=== PATIENT | male | born 1995 | race Caucasian/White ===

== ENCOUNTER 2017-08-31 08:48 | Emergency (ER) | payer SELFPAY ==
[2017-08-31 09:01] VITALS: BP 134/60; PULSE 103; O2SAT 98
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
[2017-08-31 09:41] LABS: Granulocyte Absolute (ANC) 7.11 (1.4-6.9); Hematocrit 47.9 % (42-50); Hemoglobin 16.1 gm/dl (12.5-18.0); Mean Cell Volume 94.5 fl (78-100); Mean Corpuscular Hemoglobin 31.8 pg (26-32); Mean Corpuscular Hgb Concent. 33.6 g/dl (32-36); Platelet Count 229 K/mm3 (150-450); Red Blood Count 5.07 M/mm3 (4.1-5.6); Red Cell Distribution Width 13.5 % (11.5-14.0); White Blood Count 9.5 K/mm3 (4.0-10.5)
[2017-08-31 09:47] LABS: ACETAMINOPHEN < 10 ug/ml (10-30); ALBUMIN 4.7 g/dL (3.5-5.0); ALKALINE PHOSPHATASE 44 U/L (38-126); ANION GAP 17.7 MEQ/L (5-15); BLOOD UREA NITROGEN 9 mg/dL (9-20); CHLORIDE 108 mmol/L (98-107); Calcium 9.3 mg/dL (8.4-10.2); Carbon Dioxide 26 mmol/L (22-30); Creatinine 1 0.76 mg/dL (0.66-1.25); ETHYL ALCOHOL 187 mg/dL (0-10); Glucose 96 mg/dL (74-106); Potassium 4.2 mmol/L (3.5-5.1); SALICYLATE < 1.0 mg/dL (2-20); SGOT/AST 39 U/L (17-59); SGPT/ALT 18 U/L (0-50); SODIUM 147 mmol/L (137-145); Total Protein 7.8 g/dL (6.3-8.2)
[2017-08-31 09:56] LABS: Amphetamine,Urine POSITIVE (NEGATIVE); Barbiturate,Urine NEGATIVE (NEGATIVE); Benzodiazepine,Urine NEGATIVE (NEGATIVE); Cocaine,Urine NEGATIVE (NEGATIVE); Methadone,Urine NEGATIVE (NEGATIVE); Opiate,Urine NEGATIVE (NEGATIVE); PCP,Urine NEGATIVE (NEGATIVE); THC,Urine POSITIVE (NEGATIVE)
[2017-08-31 13:53] LABS: BAND 1 % (0.0-2.0); Lymphocytes 15 % (24-44); Monocyte 2 % (0.0-12.0); Neutrophils 82 % (36.-66.); Total Cells Counted 100
[2017-08-31 13:54] LABS: Platelet Estimate NORMAL (NORMAL)
== END 2017-08-31 10:26 | disposition home or self-care (01) ==
LOC: ED 08:48
DX: F10.920 Alcohol use, unspecified with intoxication, uncomplicated (principal)
CPT/HCPCS: 36415; 80053; 80307; 85025; 99282; 99283; G0481; G0480

== ENCOUNTER 2019-12-06 23:44 | Emergency (ER) | payer MEDICAID, OTHER ==
--- NOTE | 2019-12-06 23:47 | ERPHSYRPT ---
- History of Present Illness Time Seen by Provider: 12/06/19 23:47 Source: patient Exam Limitations: no limitations Physician History: This is a 23-year-old male who presents with shortness of breath and some non- radiating substernal central chest pain and pressure. Occurred during sexual intercourse. Patient denies any heart history. He is not on any medications. Patient denies illicit drug use. Patient has not had a fever he is not coughing. He has no abdominal pain and no nausea vomiting or diarrhea. Onset of his symptoms was earlier today. They have just not resolved. They are not worse but not gone. Patient is not under any new stressors. Timing/Duration: today Activities at Onset: activity (Sexual intercourse) Severity of Dyspnea-Max: moderate Severity of Dyspnea-Current: moderate Possible Cause: no prior episodes Modifying Factors: Improves With: nothing Associated Symptoms: No anxiety, No cough, No lightheadedness, No painful breathing, No tightness, No tingling face, No tingling hands Allergies/Adverse Reactions: No Known Drug Allergies Allergy (Verified 12/06/19 23:50) Home Medications: No Reportable Medications [No Reported Medications] 11/06/12 [History] Hx Tetanus, Diphtheria Vaccination/Date Given: Yes Hx Influenza Vaccination/Date Given: No Hx Pneumococcal Vaccination/Date Given: No Travel Risk - International Travel Have you traveled outside of the country in past 3 weeks: No - Coronavirus Screening Are you exhibiting any of the following symptoms?: No Close contact with a COVID-19 positive Pt in past 14-21 Days: No - Review of Systems Constitutional: No Symptoms Eyes: No Symptoms Ears, Nose, & Throat: No Symptoms Respiratory: No Symptoms, Dyspnea (Mild) Cardiac: Chest Pain (Mild tightness) Abdominal/Gastrointestinal: No Symptoms Genitourinary Symptoms: No Symptoms Musculoskeletal: No Symptoms Skin: No Symptoms Neurological: No Symptoms Psychological: No Symptoms Endocrine: No Symptoms Hematologic/Lymphatic: No Symptoms Immunological/Allergic: No Symptoms All Other Systems: Reviewed and Negative - Past Medical History Pertinent Past Medical History: Yes Neurological History: No Pertinent History ENT History: No Pertinent History Cardiac History: Other Respiratory History: No Pertinent History Endocrine Medical History: No Pertinent History Musculoskeletal History: No Pertinent History GI Medical History: No Pertinent History History: No Pertinent History Psycho-Social History: Anxiety Male Reproductive Disorders: No Pertinent History Other Medical History: worked up for chest pain at [facility] was told it was muscoluskeletal. - Past Surgical History Past Surgical History: No Other Surgical History: denies - Social History Smoking Status: Current every day smoker Exposure to second hand smoke: Yes Drug Use: marijuana Patient Lives Alone: Yes - Nursing Vital Signs Nursing Vital Signs: Initial Vital Signs Temperature 98.1 F 12/06/19 23:50 Pulse Rate 86 12/06/19 23:50 Respiratory Rate 16 12/06/19 23:50 Blood Pressure 141/88 12/06/19 23:50 O2 Sat by Pulse Oximetry 99 12/06/19 23:50 Pain Scale Pain Intensity 2 - Physical Exam General Appearance: no apparent distress, alert, anxiety Eye Exam: PERRL/EOMI, eyes nml inspection Ears, Nose, Throat Exam: hearing grossly normal, normal pharynx Neck Exam: normal inspection, non-tender, supple, full range of motion Respiratory Exam: normal breath sounds, chest tenderness, lungs clear, No respiratory distress, No airway intact Cardiovascular/Chest Exam: normal heart sounds, regular rate/rhythm, normal peripheral pulses Abdominal/Gastrointestinal Exam: soft, normal bowel sounds, No tenderness Rectal Exam: not done Extremity Exam: non-tender, normal range of motion, normal inspection Neurologic Exam: alert, oriented x 3, cooperative, counsel II-XII nml as tested, nml cerebellar function, nml station & gait, sensation nml Skin Exam: normal color, warm, dry Lymphatic Exam: No adenopathy SpO2 Interpretation: normal O2 Delivery: Room Air - Course Nursing assessment & vital signs reviewed: Yes EKG Interpreted by Me: RATE (90), Sinus Rhythm, NORMAL AXIS, NORMAL INTERVALS, NORMAL QRS, Other (No acute ischemic changes.) Ordered Tests: Active Orders 24 hr Category Date Time Status Teacher Citizenship STAT Care 12/06/19 23:58 Active Clean Catch Urine Specimen STAT Care 12/07/19 00:45 Active EKG-ER Only STAT Care 12/06/19 23:57 Active IV Insertion STAT Care 12/06/19 23:57 Active Pulse Oximetry (ED) STAT Care 12/06/19 23:57 Active CHEST 1 VIEW (PORTABLE) Stat Exams 12/07/19 00:15 Taken TROPONIN Q3H Lab 12/07/19 02:50 Completed TROPONIN Q3H Lab 12/07/19 05:57 Ordered TROPONIN Q3H Lab 12/07/19 08:57 Ordered TROPONIN Q3H Lab 12/07/19 11:57 Ordered UA W/RFX UR CULTURE Stat Lab 12/07/19 00:45 Completed Urine Triage Profile Stat Lab 12/07/19 00:46 Completed Medication Summary Discontinued Medications Generic Name Dose Route Start Last Admin Trade Name Justine PRN Reason Stop Dose Admin Aspirin 324 mg 12/06/19 23:57 12/07/19 00:30 Baby Aspirin 81 Mg Chew PO 12/06/19 23:58 324 mg STAT ONE Administration Lab/Rad Data: Laboratory Result Diagrams 12/06/19 00:15 12/06/19 00:15 Laboratory Results 12/07/19 12/07/19 12/07/19 Range/Units 02:50 00:46 00:45 WBC (4.0-10.5) K/mm3 RBC (4.1-5.6) M/mm3 Hgb (12.5-18.0) gm/dl Hct (42-50) % MCV (78-100) fl MCH (26-32) pg MCHC (32-36) g/dl RDW (11.5-14.0) % Plt Count (150-450) K/mm3 MPV (7.5-11.0) fl Segmented Neutrophils (36.-66.) % Lymphocytes (Manual) (24-44) % Monocytes (Manual) (0.0-12.0) % Platelet Estimate (NORMAL) RBC Morphology D-Dimer (215-500) ng/mL Sodium (137-145) mmol/L Potassium (3.5-5.1) mmol/L Chloride (98-107) mmol/L Carbon Dioxide (22-30) mmol/L Anion Gap (5-15) MEQ/L BUN (9-20) mg/dL Creatinine (0.66-1.25) mg/dL Estimated GFR ML/MIN Glucose (74-106) mg/dL Calcium (8.4-10.2) mg/dL Total Bilirubin (0.2-1.3) mg/dL AST (17-59) U/L ALT (0-50) U/L Alkaline Phosphatase (38-126) U/L Troponin I 0.041 H* (0.000-0.034) ng/mL Serum Total Protein (6.3-8.2) g/dL Albumin (3.5-5.0) g/dL Urine Color YELLOW (YELLOW) Urine Appearance CLEAR (CLEAR) Urine pH 7.0 (5-6) Ur Specific [place] 1.008 (1.005-1.025) Urine Protein 30 (Negative) Urine Ketones TRACE (NEGATIVE) Urine Blood NEGATIVE (0-5) Alex/ul Urine Nitrite NEGATIVE (NEGATIVE) Urine Bilirubin NEGATIVE (NEGATIVE) Urine Urobilinogen NEGATIVE (0-1) mg/dL Ur Leukocyte Esterase NEGATIVE (NEGATIVE) Urine WBC (Auto) 6-10 (0-5) /HPF Urine RBC (Auto) 0-2 (0-2) /HPF U Hyaline Cast (Auto) 3-5 (0-2) /LPF U Epithel Cells (Auto) RARE (FEW) /HPF Urine Bacteria (Auto) NONE (NEGATIVE) /HPF Urine Mucus (Auto) SLIGHT (NEGATIVE) /HPF Urine Culture Reflexed NO (NO) Urine Glucose NEGATIVE (NEGATIVE) mg/dL Urine Opiates Level NEGATIVE (NEGATIVE) Ur Methadone NEGATIVE (NEGATIVE) Urine Barbiturates NEGATIVE (NEGATIVE) Ur Phencyclidine (PCP) NEGATIVE (NEGATIVE) Urine Amphetamine NEGATIVE (NEGATIVE) U Benzodiazepine Level NEGATIVE (NEGATIVE) Urine Cocaine NEGATIVE (NEGATIVE) Urine Marijuana (THC) POSITIVE (NEGATIVE) 12/06/19 12/06/19 12/06/19 Range/Units 00:15 00:15 00:15 WBC 15.2 H (4.0-10.5) K/mm3 RBC 5.06 (4.1-5.6) M/mm3 Hgb 15.8 (12.5-18.0) gm/dl Hct 48.5 (42-50) % MCV 95.8 (78-100) fl MCH 31.2 (26-32) pg MCHC 32.6 (32-36) g/dl RDW 14.1 H (11.5-14.0) % Plt Count 268 (150-450) K/mm3 MPV 10.7 (7.5-11.0) fl Segmented Neutrophils 84 H (36.-66.) % Lymphocytes (Manual) 14 L (24-44) % Monocytes (Manual) 2 (0.0-12.0) % Platelet Estimate NORMAL (NORMAL) RBC Morphology NORMAL D-Dimer 539 H* (215-500) ng/mL Sodium 137 (137-145) mmol/L Potassium 3.9 (3.5-5.1) mmol/L Chloride 104 (98-107) mmol/L Carbon Dioxide 25 (22-30) mmol/L Anion Gap 11.8 (5-15) MEQ/L BUN 9 (9-20) mg/dL Creatinine 1.04 (0.66-1.25) mg/dL Estimated GFR > 60.0 ML/MIN Glucose 88 (74-106) mg/dL Calcium 9.7 (8.4-10.2) mg/dL Total Bilirubin 0.40 (0.2-1.3) mg/dL AST 27 (17-59) U/L ALT 25 (0-50) U/L Alkaline Phosphatase 60 (38-126) U/L Troponin I (0.000-0.034) ng/mL Serum Total Protein 7.5 (6.3-8.2) g/dL Albumin 4.4 (3.5-5.0) g/dL Urine Color (YELLOW) Urine Appearance (CLEAR) Urine pH (5-6) Ur Specific [place] (1.005-1.025) Urine Protein (Negative) Urine Ketones (NEGATIVE) Urine Blood (0-5) Alex/ul Urine Nitrite (NEGATIVE) Urine Bilirubin (NEGATIVE) Urine Urobilinogen (0-1) mg/dL Ur Leukocyte Esterase (NEGATIVE) Urine WBC (Auto) (0-5) /HPF Urine RBC (Auto) (0-2) /HPF U Hyaline Cast (Auto) (0-2) /LPF U Epithel Cells (Auto) (FEW) /HPF Urine Bacteria (Auto) (NEGATIVE) /HPF Urine Mucus (Auto) (NEGATIVE) /HPF Urine Culture Reflexed (NO) Urine Glucose (NEGATIVE) mg/dL Urine Opiates Level (NEGATIVE) Ur Methadone (NEGATIVE) Urine Barbiturates (NEGATIVE) Ur Phencyclidine (PCP) (NEGATIVE) Urine Amphetamine (NEGATIVE) U Benzodiazepine Level (NEGATIVE) Urine Cocaine (NEGATIVE) Urine Marijuana (THC) (NEGATIVE) 12/06/19 Range/Units 00:15 WBC (4.0-10.5) K/mm3 RBC (4.1-5.6) M/mm3 Hgb (12.5-18.0) gm/dl Hct (42-50) % MCV (78-100) fl MCH (26-32) pg MCHC (32-36) g/dl RDW (11.5-14.0) % Plt Count (150-450) K/mm3 MPV (7.5-11.0) fl Segmented Neutrophils (36.-66.) % Lymphocytes (Manual) (24-44) % Monocytes (Manual) (0.0-12.0) % Platelet Estimate (NORMAL) RBC Morphology D-Dimer (215-500) ng/mL Sodium (137-145) mmol/L Potassium (3.5-5.1) mmol/L Chloride (98-107) mmol/L Carbon Dioxide (22-30) mmol/L Anion Gap (5-15) MEQ/L BUN (9-20) mg/dL Creatinine (0.66-1.25) mg/dL Estimated GFR ML/MIN Glucose (74-106) mg/dL Calcium (8.4-10.2) mg/dL Total Bilirubin (0.2-1.3) mg/dL AST (17-59) U/L ALT (0-50) U/L Alkaline Phosphatase (38-126) U/L Troponin I 0.031 (0.000-0.034) ng/mL Serum Total Protein (6.3-8.2) g/dL Albumin (3.5-5.0) g/dL Urine Color (YELLOW) Urine Appearance (CLEAR) Urine pH (5-6) Ur Specific [place] (1.005-1.025) Urine Protein (Negative) Urine Ketones (NEGATIVE) Urine Blood (0-5) Alex/ul Urine Nitrite (NEGATIVE) Urine Bilirubin (NEGATIVE) Urine Urobilinogen (0-1) mg/dL Ur Leukocyte Esterase (NEGATIVE) Urine WBC (Auto) (0-5) /HPF Urine RBC (Auto) (0-2) /HPF U Hyaline Cast (Auto) (0-2) /LPF U Epithel Cells (Auto) (FEW) /HPF Urine Bacteria (Auto) (NEGATIVE) /HPF Urine Mucus (Auto) (NEGATIVE) /HPF Urine Culture Reflexed (NO) Urine Glucose (NEGATIVE) mg/dL Urine Opiates Level (NEGATIVE) Ur Methadone (NEGATIVE) Urine Barbiturates (NEGATIVE) Ur Phencyclidine (PCP) (NEGATIVE) Urine Amphetamine (NEGATIVE) U Benzodiazepine Level (NEGATIVE) Urine Cocaine (NEGATIVE) Urine Marijuana (THC) (NEGATIVE) - Progress Progress: improved (Patient now states he has no more chest pain.) Air Movement: good Progress Note: 12/07/19 03:24 Chest x-ray reveals no acute pulmonary process. Medical decision making: This patient, who has no bleeding or clotting disorders, no personal history of any cardiac issues and no family history of cardiac issues that he is aware of presents with chest pain during sexual intercourse. The initial EKG read out borderline ST changes on the computer readout. However, on my reading of it did not show acute ST changes. His troponin level was near the high borderline level so we observed him for another 3 hours. We then repeated his troponin level which tripp to above the normal level to 0.041. This was up from 0.031. The patient's chest pain has now resolved. The repeat EKG at 3:27 AM on 12/07/2019 shows resolution of both atrial premature complex and borderline ST elevation in the anterior leads but persistent borderline T abnormalities in the inferior leads. I reviewed the troponin levels and EKG results with the patient. Patient has stated that he does not want to be admitted or transferred to a facility and would go home and go to a nearby hospital if his symptoms worsened. I explained to him the benefits of and need of transferring to a facility that has an taker away/histology manager and an intensive care unit. I explained to him the risk of going home including worsening pain, worsening condition and . Patient then briefly agreed to be transferred. However, he has changed his mind again and the nurses are talking to him at this time. He is now wanting to be transferred via private vehicle. I went to speak with him again. Patient is aware that he will need to sign an AMA form if he chooses to leave or be transferred via private vehicle. 12/07/19 03:29 12/07/19 03:43 The patient now opts for going home. He does not want to be transferred to any facility via private vehicle or be transferred or admitted to this facility. Patient wants to go home. I spoke with him as well as the nurse spoke with him. Patient is aware of the above risks including symptoms worsening and . one of the patient's concerns was the lack of health insurance. A medical screening for medicaid was done and pt is eleigible for health insurance. We addressed this with him as well but this did not sway his decision. Patient will sign an AMA form. Patient is alert and oriented x4. Patient was encouraged again to be transferred to a facility where there is a histology manager in the ability to perform interventional cardiology. Patient was also encouraged to return to emergency department or to any emergency department if he changes his mind or symptoms worsen. 12/07/19 03:49 12/07/19 03:52 12/07/19 03:54 12/07/19 03:56 Blood Culture(s) Obtained: No Antibiotics given: No Counseled pt/family regarding: lab results, diagnosis, need for follow-up, rad results - Departure Departure Disposition: AMA Clinical Impression: Chest pain, Elevated troponin Condition: Stable Critical Care Time: Yes Critical Care Time(excluding separately billable procedures): Critical 30-74 mins Referrals: STEPHANI HORTON [Primary Care Provider] - Additional Instructions: Get to an emergency department immediately for further management.
[2019-12-07 00:15] LABS: Hematocrit 48.5 % (42-50); Hemoglobin 15.8 gm/dl (12.5-18.0); Mean Cell Volume 95.8 fl (78-100); Mean Corpuscular Hemoglobin 31.2 pg (26-32); Mean Corpuscular Hgb Concent. 32.6 g/dl (32-36); Mean Platelet Volume 10.7 fl (7.5-11.0); Platelet Count 268 K/mm3 (150-450); Red Blood Count 5.06 M/mm3 (4.1-5.6); Red Cell Distribution Width 14.1 % (11.5-14.0); White Blood Count 15.2 K/mm3 (4.0-10.5)
[2019-12-07 00:30] LABS: ALBUMIN 4.4 g/dL (3.5-5.0); ALKALINE PHOSPHATASE 60 U/L (38-126); ANION GAP 11.8 MEQ/L (5-15); BLOOD UREA NITROGEN 9 mg/dL (9-20); CHLORIDE 104 mmol/L (98-107); Calcium 9.7 mg/dL (8.4-10.2); Carbon Dioxide 25 mmol/L (22-30); Creatinine 1 1.04 mg/dL (0.66-1.25); Glucose 88 mg/dL (74-106); Potassium 3.9 mmol/L (3.5-5.1); SGOT/AST 27 U/L (17-59); SGPT/ALT 25 U/L (0-50); SODIUM 137 mmol/L (137-145); Total Protein 7.5 g/dL (6.3-8.2)
[2019-12-07] MEDS: BABY ASPIRIN 81 MG CHEW PO ONE (00:30)
[2019-12-07 00:55] LABS: Appearance CLEAR (CLEAR); Bilirubin NEGATIVE (NEGATIVE); Blood NEGATIVE Ery/ul (0-5); Epithelial Cells RARE /HPF (FEW); Glucose NEGATIVE (NEGATIVE); Ketones TRACE (NEGATIVE); Leukocyte Esterase NEGATIVE (NEGATIVE); Mucus SLIGHT /HPF (NEGATIVE); Nitrite NEGATIVE (NEGATIVE); Protein,Urine Dip 30 (Negative); RBC 0-2 /HPF (0-2); Specific Gravity 1.008 (1.005-1.025); Urobilinogen NEGATIVE mg/dL (0-1)
[2019-12-07 00:58] LABS: Lymphocytes 14 % (24-44); Monocyte 2 % (0.0-12.0); Neutrophils 84 % (36.-66.); Total Cells Counted 100
[2019-12-07 00:59] LABS: Platelet Estimate NORMAL (NORMAL)
[2019-12-07 01:06] LABS: Amphetamine,Urine NEGATIVE (NEGATIVE); Barbiturate,Urine NEGATIVE (NEGATIVE); Benzodiazepine,Urine NEGATIVE (NEGATIVE); Cocaine,Urine NEGATIVE (NEGATIVE); Methadone,Urine NEGATIVE (NEGATIVE); Opiate,Urine NEGATIVE (NEGATIVE); PCP,Urine NEGATIVE (NEGATIVE); THC,Urine POSITIVE (NEGATIVE)
[2019-12-07 03:58] VITALS: BP 149/90; PULSE 97; O2SAT 99
--- NOTE | 2019-12-07 09:10 | XRAY ---
Indication: Chest pain and short of breath. Comparison: November 06, 2012. Portable chest again demonstrates normal heart, lungs, and bony thorax.
== END 2019-12-07 04:04 | disposition left against medical advice (07) ==
LOC: ED 23:44
DX: R07.9 Chest pain, unspecified (principal); R74.8 Abnormal levels of other serum enzymes
CPT/HCPCS: 36000; 36415; 71045; 80053; 80307; 81001; 84484; 85025; 85379; 93005; 93041; 94760; 99284; 99291; A9270-GY

== ENCOUNTER 2020-01-30 02:44 | Emergency (ER) | payer OTHER ==
[2020-01-30] MEDS ORDERED: TORAdol 30 mg Injection ONE (03:12)
[2020-01-30] MEDS: TORAdol 30 mg Injection IM ONE (03:14)
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
[2020-01-30] MEDS: PERCOCET TABLET 5/325MG PO ONE (05:00)
[2020-01-30 05:37] VITALS: BP 112/72; PULSE 90
[2020-01-30 05:51] VITALS: O2SAT 98
--- NOTE | 2020-01-30 07:20 | XRAY ---
Indication: Pain following fall. Comparison: None 3 view left ankle obtained. Query tiny nondisplaced navicular fracture, dorsal aspect with overlying soft tissue swelling. Correlate clinically. No other bony, articular, or soft tissue abnormalities. Comment: Preliminary interpretation was made by [facility]. No critical discrepancy.
--- NOTE | 2020-01-30 07:22 | XRAY ---
Indication: Pain following fall. Comparison: None 2 view left lower leg obtained. No bony, articular, or soft tissue abnormalities. Ankle reported separately.
== END 2020-01-30 05:30 | disposition home or self-care (01) ==
LOC: ED 02:44
DX: S92.255A Nondisplaced fracture of navicular [scaphoid] of left foot, initial encounter for closed fracture (principal); W17.81XA Fall down embankment (hill), initial encounter; X50.1XXA Overexertion from prolonged static or awkward postures, initial encounter; Y93.9 Activity, unspecified; Y92.9 Unspecified place or not applicable; Y99.9 Unspecified external cause status
CPT/HCPCS: 73590; 73610; 96372; 99284; J1885; L4386

== ENCOUNTER 2020-04-26 05:54 | Day surgery (SDC) | payer OTHER ==
[2020-04-26] MEDS ORDERED: Lactated Ringers 1,000 ML IV SCH (06:00)
[2020-04-26] MEDS ORDERED: KEFZOL 1 GM/50 ML PREMIX** 1 GM/50 ML IVPB IV SCH (06:15)
[2020-04-26 06:27] VITALS: O2SAT 99
[2020-04-26] MEDS ORDERED: VANCOCIN 1 GM VIAL IV ONE (06:31)
[2020-04-26] MEDS ORDERED: XYLOCAINE 1% HCL 20 ML MDV ONE (06:32)
[2020-04-26] MEDS ORDERED: BUPIVACAINE 0.5% VIAL IJ ONE ×2 (06:32→07:02)
[2020-04-26 06:38] LABS: ANION GAP 8.9 MEQ/L (5-15); BLOOD UREA NITROGEN 14 mg/dL (9-20); CHLORIDE 104 mmol/L (98-107); Calcium 9.4 mg/dL (8.4-10.2); Carbon Dioxide 27 mmol/L (22-30); Creatinine 1 0.99 mg/dL (0.66-1.25); EST GLOMERULAR FILTRATION RATE > 60.0 ML/MIN; Glucose 90 mg/dL (74-106); SODIUM 137 mmol/L (137-145)
[2020-04-26] MEDS ORDERED: Versed 2 MG/2 ML Injection ONE (06:59)
[2020-04-26] MEDS ORDERED: SUBLIMAZE 100 MCG/2 ML ONE ×3 (06:59→09:38)
[2020-04-26] MEDS ORDERED: Xylocaine-Mpf 2% 5 Ml Vial ONE (07:00)
[2020-04-26] MEDS ORDERED: EPINEPHRINE 1MG/ML AMP ONE (07:05)
[2020-04-26] MEDS ORDERED: DIPRIVAN 200 MG/20 ML IV ONE (07:39)
[2020-04-26] MEDS ORDERED: Zemuron 100 MG/10 ML ONE ×2 (07:39→09:59)
[2020-04-26] MEDS ORDERED: Decadron 4 MG INJ ONE (08:09)
[2020-04-26] MEDS ORDERED: Zofran 4 MG/2 ML VIAL ONE (10:04)
[2020-04-26] MEDS ORDERED: TORAdol 30 mg Injection ONE (10:04)
[2020-04-26] MEDS ORDERED: BRIDION 200MG/2ML IV ONE (10:15)
--- NOTE | 2020-04-26 10:52 | XRAY ---
Indication: Repair lateral ligament left ankle. Intraoperative fluoroscopy was provided for 1 minute 11 seconds. 2 digital spot images left ankle demonstrates soft tissue changes laterally presumed postsurgical. Correlate with intraoperative findings/report.
--- NOTE | 2020-04-26 10:57 | XRAY ---
1 minute and 11 seconds fluoroscopy time in surgery for left ankle repair.
[2020-04-26 12:10] VITALS: BP 129/70; PULSE 100
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
== END 2020-04-26 12:12 | disposition home or self-care (01) ==
LOC: SDC 05:54
PROVIDERS: ATTEND Podiatrist Foot & Ankle Surgery
DX: S93.412D Sprain of calcaneofibular ligament of left ankle, subsequent encounter (principal); M25.371 Other instability, right ankle; M25.572 Pain in left ankle and joints of left foot
CPT/HCPCS: 36415; 73600; 76000; 76937; 80048; J0171; J0690; J1100; J1885; J2250; J2405; J2704; J3010; J3370

== ENCOUNTER 2021-02-14 06:54 | Day surgery (SDC) | payer OTHER ==
[2021-02-14] MEDS ORDERED: LIDOCAINE HCL 2% 100 MG/5 ML IJ ONE (06:55)
[2021-02-14] MEDS ORDERED: Depo-Medrol 40 MG/ML IM ONE (06:55)
[2021-02-14] MEDS ORDERED: DIPRIVAN 200 MG/20 ML IV ONE ×2 (08:41→08:47)
--- NOTE | 2021-02-14 09:47 | XRAY ---
Indication: Bilateral L4-S1 MBB. Intraoperative fluoroscopy provided for 12 seconds. Single digital spot image submitted for interpretation demonstrates posterior needle tips projecting over the expected left and right L4-S1 nerve roots. Correlate with intraoperative findings/report.
--- NOTE | 2021-02-14 11:23 | XRAY ---
12 seconds fluoroscopy time in surgery for bilateral L4-S1 MBB.
[2021-02-14] MEDS ORDERED: Lactated Ringers 1,000 ML IV ONE (15:01)
== END 2021-02-14 09:07 | disposition home or self-care (01) ==
LOC: SDC-PAIN 06:54
PROVIDERS: ATTEND Psychiatry & Neurology Pain Medicine
DX: M47.816 Spondylosis without myelopathy or radiculopathy, lumbar region (principal); Z79.899 Other long term (current) drug therapy
CPT/HCPCS: 64493; 64494; 72020; 77002; J1030; J2704